=== PATIENT | male | born 2000 | race Hispanic/Latino ===

== ENCOUNTER 2022-12-09 12:28 | Emergency (ER) | payer MEDICAID, OTHER ==
[~2022-12-09] VITALS: Ht 172.7 cm; Wt 81.6 kg
[2022-12-09] MEDS ORDERED: FLUORESCEIN SODIUM 1 STRIP STRIP OP SCH (13:00)
[2022-12-09] MEDS ORDERED: TETRACAINE HCL 0.5% 4 ML OPHTH SOLN OP SCH (13:00)
[2022-12-09] MEDS ORDERED: NA BORATE/BORIC AC/H2O/NACL 120 ML OPHTH IRRIG SOLN OP SCH (13:00)
[2022-12-09] MEDS ORDERED: IBUP-2070 PO (13:25)
[2022-12-09] MEDS ORDERED: ACET-66 PO (13:25)
[2022-12-09] MEDS ORDERED: MOXIOS OD (13:25)
[2022-12-09] MEDS ORDERED: HYDROCODONE/ACETAMINOPHEN 5/325 MG TAB PO ONE (13:30)
[2022-12-09] MEDS ORDERED: KETOROLAC 60 MG VIAL (30MG/ML) IM ONE (13:30)
[2022-12-09 14:31] VITALS: BP 132/77; PULSE 78; RESP 18; O2SAT 98
== END 2022-12-09 14:33 | disposition home or self-care (01) ==
LOC: EDH 12:28
DX: S05.01XA Injury of conjunctiva and corneal abrasion without foreign body, right eye, initial encounter (principal); Z88.0 Allergy status to penicillin; X58.XXXA Exposure to other specified factors, initial encounter; Y93.89 Activity, other specified; Y92.89 Other specified places as the place of occurrence of the external cause; Y99.8 Other external cause status
CPT/HCPCS: 99284; 96372; J1885